=== PATIENT | female | born 1975 ===

== ENCOUNTER 2019-03-29 07:50 | Day surgery (SDC) | payer OTHER ==
[~2019-03-29 07:50] MED LIST: XYZAL5 MG PO
[2019-03-29] MEDS ORDERED: MORGIDOX100 MG PO (11:48)
[2019-03-29] MEDS ORDERED: Tylenol #3 PO (11:48)
== END 2019-03-29 17:00 | disposition home or self-care (01) ==
LOC: CIR.AMB 07:50
DX: D25.0 Submucous leiomyoma of uterus (principal); N84.0 Polyp of corpus uteri